=== PATIENT | female | born 1990 | race Asian ===

== ENCOUNTER 2016-08-29 03:30 | Inpatient (IN) | payer OTHER ==
[~2016-08-29] VITALS: Ht 154.9 cm; Wt 57.3 kg
[~2016-08-29 03:30] MED LIST: PREN1TAB47 PO
[2016-08-29] MEDS ORDERED: Methylergonovine 0.2 mg/mL Inj IM PRN ×2 (05:55→10:30)
[2016-08-29] MEDS ORDERED: Carboprost 250 mCg/mL Inj IM PRN ×2 (05:55→10:30)
[2016-08-29] MEDS ORDERED: Sodium Chloride LOK Flush 10 mL Syringe IVFLUSH PRN (05:55)
[2016-08-29] MEDS ORDERED: Oxytocin 30 Units/500 mL LR 30 UNITS in IV Premix 1 EACH IV PRN ×2 (05:55→10:30)
[2016-08-29] MEDS ORDERED: fentaNYL-PF 50 mCg/mL 2 mL Inj IVPUSH PRN (05:55)
[2016-08-29] MEDS ORDERED: Oxytocin 10 Unit/mL Inj IM PRN ×2 (05:55→10:30)
[2016-08-29] MEDS ORDERED: Hemorrhage Kit, Post Partum XX ONE ×2 (05:55→10:30)
[2016-08-29] MEDS ORDERED: Ondansetron 2 mg/mL 2 mL Inj IVPUSH PRN ×2 (05:55→07:20)
[2016-08-29] MEDS: Lactated Ringer's 1,000 ML IV PRN ×2 (06:12→06:36)
[2016-08-29 06:20] LABS: Mean Corpuscular Volume 89.4 fL (81-100)
[2016-08-29] MEDS ORDERED: fentaNYL 2 mCg/mL-Bupivicaine 0.125% 100 mL Premix EPIDURAL ONE (06:41)
[2016-08-29] MEDS ORDERED: Lactated Ringer's 500 ML IV ONE (07:16)
[2016-08-29] MEDS: Lactated Ringer's 1,000 ML IV SCH ×2 (07:16→15:16)
--- NOTE | 2016-08-29 07:16 | PCM.HPANE ---
Patient Data Date of Service: Aug 29, 2016 (0640) Surgeon Admitting Provider:Surendra Peña MD Attending Provider:Surendra Peña MD Primary Care Physician:Surendra Peña MD Other Provider: Reason for Visit Term Labor TERM LABOR Ht/WT & BMI Body Mass Index Allergies Coded Allergies: No Known Allergies (Unverified Allergy, 02/01/10) Past Anesthesia History Anesthesia History: Denies:: Anesthesia Reactions Diabetes History Hx Diabetes?: No MRSA MRSA: No Medications Reported Medications Vit/Fe Fumarate/Fa-Expunged Drug, Do (-Expunged Drug, Do Not Renew!)1 Tab Tablet1 Tab PO DAILY 01/28/12 History History of ENT Problems?: No Hx of Heart Problems?: No Hx of Respiratory Problem?: No Hx Neurologic Problems?: No Hx of GI Problems?: Yes Gastrointestinal History: Positive for:: Heartburn ("sometimes") Denies:: Diverticulitis Gastroesphageal Reflux Gastrointestinal Bleeding Hepatitis Hiatal Hernia Rectal Bleeding Hx of Problems?: Yes Genitourinary History: Positive for:: Urinary Tract Infection (Bladder infection 1 month ago) Denies:: HX of Hemodialysis Kidney Stones HX of Peritoneal Dialysis: No Female Hx: Denies:: Endometriosis Pelvic Inflammatory Problems with Breasts? Hx Musculoskeletal Problems?: No Hx of Psycho/Social Problems?: Yes Psycho Social History: Positive for:: Hx Depression (pt denies. But took 14 tylenol for her "depression") Suicide Attempt (02/01/10) Denies:: Anxiety Bipolar Disorder Hx Surgeries?: No Hx Any Other Health Problems?: No Other History: Positive for:: Hospitalization (when younger) Denies:: Cancer Endocrine Disease Thyroid Disease History Blood Transfusions: Denies:: Blood Transfusions Hx Diabetes: No Hx Alcohol Use: Yes (On birthdays)Hx Substance Use: No Smoking Status: Never Smoker Stop/Bang Risk Assessment Category Category 1A: Patient has history of documented sleep apnea, and HAS NOT received any narcotic, sedative or anesthesia administration during this stay. Category 1B: Patient has history of documented sleep apnea, and HAS received any narcotic , sedative or anesthesia administration during this stay Category 2: Patient has SUSPECTED Obstructive Sleep Apnea, and HAS received any narcotic , sedative or anesthesia administration during this stay. Category 3: Patient has SUSPECTED Obstructive Sleep Apnea and HAS NOT received narcotic, sedative or anesthesia administration during this stay. Category 4: Outpatient in Procedural Areas with known sleep apnea or who screen positive for High Risk via the STOP/BANG questionnaire. Exam Exam General Appearance: Alert, Oriented X3, Cooperative, No Acute Distress HEENT/AIRWAY: MP 2 Lungs: Clear to Auscultation Heart: Exam Unremarkable Meds/Labs/Diagnostics Labs Test 08/29/16 05:30 White Blood Count 11.9th/mm3 (3.8-10.1) Red Blood Count 3.69mil/mm3 (3.90-5.20) Hemoglobin 10.7g/dL (12.0-15.6) Hematocrit 33.0% (35.0-46.0) Mean Corpuscular Volume 89.4fL (81-100) Mean Corpuscular Hemoglobin 29.0pg (27.0-35.0) Mean Corpuscular Hemoglobin Concent 32.4% (32.0-37.0) Red Cell Distribution Width 12.5% (12.3-15.4) Platelet Count 196bil/L (150-400) Plan Impression Patient chart reviewed, patient interviewed and anesthestic plan with risks, benefits, and alternatives discussed, and informed consent obtained. ASA Physical Status: ASA2 Mod Systemic Disease Anesthetic Plan: Epidural Bene/Risks/Altern/Consents: Yes HP Complete Prior to Induction: Yes Naif Garrett MD Aug 29, 2016 07:16
[2016-08-29] MEDS ORDERED: EPHEDrine Sulfate 50 mg/mL Inj IVPUSH PRN (07:20)
[2016-08-29] MEDS ORDERED: fentaNYL 2 mCg/mL-Bupiv 0.125% 100 ML EPIDURAL SCH (07:20)
[2016-08-29] MEDS ORDERED: Atropine 1 mg/10 mL (Code) Syringe IVPUSH PRN (07:20)
[2016-08-29] MEDS: Sodium Chloride LOK Flush 10 mL Syringe IVFLUSH SCH ×2 (08:30→16:30)
[2016-08-29] MEDS ORDERED: Lactated Ringer's 1,000 ML IV SCH (10:28)
[2016-08-29] MEDS ORDERED: LANOlin HPA 7 Gm Ointment TOPICAL PRN (10:30)
[2016-08-29] MEDS ORDERED: Benzocaine (Dermoplast) 20% 60 Gm Spray TOPICAL PRN (10:30)
[2016-08-29] MEDS ORDERED: Witch Hazel-Glycerin Pads TOPICAL PRN (10:30)
--- NOTE | 2016-08-29 10:33 | PCM.OBVAG ---
Vaginal Delivery Date of Service Aug 29, 2016 Pre Operative Diagnosis Pre Operative Diagnosis Term , 37 weeks Procedure Obstetical Procedure: Normal Spontaneous Vaginal Delivery Indication for Procedure Induction: Active labor, Progressed normally through labor Findings Obstetrical Findings: [place] (Male), Cord (3 Vessel), 1 minute (8), 5 minutes (9), Placenta (Intact/Normal) Analgesia/Medications Obstetrical Anesthesia: Epidural Blood Loss & Administration Blood Admin during procedure: No Post Procedure Plan Post delivery Condition: Mom stable Surendra Peña MD Aug 29, 2016 10:33
[2016-08-29] MEDS ORDERED: Erythromycin 0.5% 1 Gm Ophthalmic Ointment BOTH_EYES ONE (10:55)
[2016-08-29] MEDS ORDERED: Hepatitis-B (PED)(DSHS) 10 mCg/0.5 ML Vaccine IM ONE (10:55)
[2016-08-29] MEDS ORDERED: Phytonadione (Neonate) 1 mg/0.5 mL Inj IM ONE (10:55)
--- NOTE | 2016-08-29 11:40 | PCM.ANEP1 ---
Post Anesthesia Phase 1 PACU Phase 1 Assessment Date of Service: Aug 29, 2016 (0640) Vital Signs see nursing notes Anesthetic Administered: Epidural Level of Alertness: Awake, talking Pain Scale Score: 10 Lungs: Clear to Auscultation Carlos Nettles MD Aug 29, 2016 11:40
--- NOTE | 2016-08-29 11:40 | PCM.ANEP2 ---
Post Anesthesia Evaluation ASA/CMS Post Anesthesia VS in Patient's Normal Range?: Yes Resp Stable; Airway Patent?: Yes CV Function & Hydration Stable: Yes Mental Status Recovered?: Yes Pain control Satisfactory?: Yes N/V Control Satisfactory?: Yes Carlos Nettles MD Aug 29, 2016 11:40
[2016-08-29] MEDS ORDERED: Measles-Mumps-Rubella Vaccine 0.5 mL Inj SUBQ ONE (14:20)
[2016-08-30] MEDS: HYDROcodone-APAP 5-325 mg Tablet PO PRN ×3 (00:09→13:43)
[2016-08-30 06:16] LABS: Mean Corpuscular Hemoglobin 28.4 pg (27.0-35.0); Mean Corpuscular Volume 91.2 fL (81-100)
--- NOTE | 2016-08-30 11:37 | PCM.DC.OB ---
Obstetrical Discharge Summary Date of Service Aug 30, 2016 Date of hospital admission Aug 29, 2016 at 05:26 Date of Discharge: Aug 30, 2016 Providers Admitting Physician: Surendra Peña MD Primary Care Physician: Surendra Peña MD Attending Physician: Surendra Peña MD Problems: (1) Qualifiers: Weeks of gestation: 37 weeks Qualified Code: Z3A.37 - 37 weeks gestation of Status: Acute ICD Code: Z33.1 Invasive procedures Date of Procedure: Aug 29, 2016 Brief History and Physical: 26yo at 37w with active labor. complicated by prodromal pain, especially back pain. Genenerally uncomplicated medical/surgical history otherwise. Hospital Course: Delivered healthy Male. Some headache and cramping but course unremarkable otherwise. Good appetite, decreasing flow, uncertain contraception , plans but currently having some feeding issues. Vit/Fe Fumarate/Fa-Expunged Drug, Do (-Expunged Drug, Do Not Renew!) 1 Tab Tablet 1 TAB PO DAILY (Reported) Discharge Medications: [place] #20, Ibuprofen 800 #20. Discharge Diet: No restrictions Discharge Activity-General: Pelvic Rest, Be up and about, Balance rest and activity, Activity as pain allows, Activity as energy allows Surendra Peña MD Aug 30, 2016 10:36
--- NOTE | 2016-08-30 11:38 | PCM.DIOB ---
Obstetrical Disch Instruction Dates of Hospitalization Date of Hospital Admission Aug 29, 2016 at 05:26 Providers Admitting Physician: Surendra Peña MD Primary Care Physician: Surendra Peña MD Attending Physician: Surendra Peña MD Discharge Diagnosis Problems: (1) Qualifiers: Weeks of gestation: 37 weeks Qualified Code: Z3A.37 - 37 weeks gestation of Status: Acute ICD Code: Z33.1 Diet Discharge Diet: No restrictions Activity Discharge Activity-General: No restrictions, Try not to overdue, Be up and about, Balance rest and activity, Activity as pain allows, Activity as energy allows Dressing and Incisional Care Hygiene: May shower Follow Up Plan Follow-up appointment: Weeks (6) Call your provider for: Fever or Chills, Shortness of breath, Heavy vaginal bleeding, Heavy bleeding, Epigastric pain, Excessive constipation, Vaginal discomfort, Red painful breasts Surendra Peña MD Aug 30, 2016 11:38
[2016-08-30] MEDS ORDERED: HYDR-4003 PO (11:39)
[2016-08-30] MEDS ORDERED: IBUP800T28 PO (11:39)
[2016-08-30 15:15] VITALS: BP 82/53; PULSE 69; RESP 18
--- NOTE | 2016-10-08 17:25 | PCM.HPOB ---
Subjective Referring Provider: Admitting Physician: Surendra Peña MD Primary Care Physician: Surendra Peña MD Attending Physician: Surnedra Peña MD History of Present History of Present Illness 26yo at 37w with active labor. complicated by prodromal pain, especially back pain. Genenerally uncomplicated medical/surgical history otherwise. OB History: (3), Para (2), Term (2) Obstetrical Complications: None Past Medical History Obstetrical History: Unremarkable Gynecologic History: Unremarkable Medical History: Unremarkable Hx Tobacco Use: No Hx Alcohol Use: No Hx Substance Use: No Past Family History Living Arrangement: with Family Genetic Screening/Counseling Genetic Screening/Counseling: Negative Review of Systems ROS Contractions, mild heartburn, otherwise negative. Allergy Coded Allergies: No Known Allergies (Unverified Allergy, 02/01/10) Exam Constitutional: Well-developed HEENT: Atraumatic, Scleral Anicteric Lungs: Clear to Auscultation Heart: Exam Unremarkable Abdomen: Gravid Extremities: Warm, No Edema Neurological/Psychiatric: Alert, Oriented X3, Cooperative Neuro: Grossly Neurologically Intact Labs/Diagnostics Additional Information See Records. OB Intrapartum Assessment/Plan Problems: (1) Qualifiers: Weeks of gestation: 37 weeks Qualified Code: Z3A.37 - 37 weeks gestation of Plan: Active management of labor. Status: Acute ICD Code: Z33.1 Pain Evaluation: Adequate Pain Control Surendra Peña MD October 08, 2016 17:25
== END 2016-08-30 16:14 | disposition home or self-care (01) | DRG 775 ==
LOC: FBCO 03:30 → FBC 05:26
PROVIDERS: ADMIT Family Medicine; ATTEND Family Medicine
PROC: 10E0XZZ Delivery of Products of Conception, External Approach (ICD-10-PCS; principal; 2016-08-29)
DX: O69.81X0 Labor and delivery complicated by cord around neck, without compression, not applicable or unspecified (principal); Z3A.37 37 weeks gestation of pregnancy; Z37.0 Single live birth